=== PATIENT | male | born 1990 | race African-American/Black ===

== ENCOUNTER 2017-05-17 13:36 | Emergency (ER) | payer MEDICAID ==
[~2017-05-17] VITALS: Ht 160 cm; Wt 93.4 kg
[~2017-05-17 13:36] MED LIST: BACTRIM DS 8001 TA1 PO; KEFLEX500 MG PO; KLOR-CON M2020 ME1 PO; NORCO 325 MG-51 TAB PO; ZOFRAN ODT4 MG SL
[2017-05-17] MEDS ORDERED: CYCLOBENZAPRINE10 MG PO (15:02)
[2017-05-17] MEDS ORDERED: NAPROSYN500 MG PO (15:02)
== END 2017-05-17 15:11 | disposition home or self-care (01) ==
LOC: ED 13:36
DX: M26.601 Right temporomandibular joint disorder, unspecified (principal)

== ENCOUNTER 2018-06-16 11:57 | Emergency (ER) | payer OTHER ==
[~2018-06-16 11:57] MED LIST changes: +CYCLOBENZAPRINE10 MG PO; +NAPROSYN500 MG PO
[2018-06-16] MEDS ORDERED: AMOXICILLIN500 M2 PO (12:08)
[2018-06-16] MEDS ORDERED: Motrin,Rufen800 MG PO (12:08)
== END 2018-06-16 12:08 | disposition home or self-care (01) ==
LOC: ED 11:57
DX: H66.92 Otitis media, unspecified, left ear (principal)

== ENCOUNTER 2020-07-03 05:54 | Emergency (ER) | payer OTHER ==
[~2020-07-03] VITALS: Ht 160 cm; Wt 93.4 kg
[~2020-07-03 05:54] MED LIST changes: +AMOXICILLIN500 M2 PO; +Motrin,Rufen800 MG PO
[2020-07-03 06:39] LABS: BASO % 0.4 % (0.0-1.0); EOS # 0.1 10*3/uL (0.0-0.4); EOS % 1.6 % (1.0-4.0); HEMATOCRIT 44.1 % (42.0-52.0); LYMPH # 2.1 10*3/uL (1.3-4.4); LYMPH % 30.7 % (27.0-41.0); MEAN CORPUSCULAR HGB 29.6 pg (27.0-31.0); MEAN CORPUSCULAR HGB CONC 32.9 g/dl (33.0-37.0); MONO # 0.7 10*3/uL (0.1-1.0); MONO % 9.3 % (3.0-9.0); NEUT % 57.6 % (47.0-73.0); PLATELET COUNT AUTOMATED 225 10*3/uL (130-400); RED CELL DISTRI WIDTH 12.1 % (0-14.5)
[2020-07-03 06:59] LABS: ALBUMIN 3.4 gm/dl (3.1-4.5); ALKALINE PHOSPHATASE 56 U/L (45-117); BUN 16 mg/dl (7-24); CHLORIDE 109 mmol/L (98-107); CREATININE 1.46 mg/dL (0.70-1.30); LIPASE 74 U/L (73-393); POTASSIUM 3.8 mmol/L (3.5-5.1); SGOT/AST 28 IU/L (3-35); SGPT/ALT 44 U/L (12-78); SODIUM 140 mmol/L (136-145); TOTAL PROTEIN 7.7 gm/dL (6.4-8.2)
[2020-07-03 07:04] LABS: TROPONIN I < 0.015 ng/ml (<0.045)
== END 2020-07-03 09:17 | disposition home or self-care (01) ==
LOC: ED 05:54
PROVIDERS: Emergency Medicine
DX: K21.9 Gastro-esophageal reflux disease without esophagitis (principal); Z79.899 Other long term (current) drug therapy

== ENCOUNTER 2021-02-04 19:47 | Emergency (ER) | payer OTHER | END 2021-02-04 20:22 | disposition left against medical advice (07) | LOC: ED 19:47 | DX: R50.9 Fever, unspecified (principal); Z53.21 Procedure and treatment not carried out due to patient leaving prior to being seen by health care provider ==

== ENCOUNTER → 2021-02-05 | Outpatient (CLI) | payer OTHER | END | disposition home or self-care (01) | LOC: COVID19 16:05 | PROVIDERS: ATTEND Internal Medicine | DX: U07.1 COVID-19 (principal) ==

== ENCOUNTER → 2023-12-21 | Outpatient (CLI) | payer OTHER | END | disposition home or self-care (01) | LOC: CARD 02:13 | PROVIDERS: ATTEND Internal Medicine Cardiovascular Disease | DX: R06.02 Shortness of breath (principal); R06.09 Other forms of dyspnea ==

== ENCOUNTER → 2025-03-04 | Outpatient (CLI) | payer OTHER | END | disposition home or self-care (01) | LOC: CARD 00:27 | PROVIDERS: ATTEND Family Medicine | DX: R07.9 Chest pain, unspecified (principal) ==